=== PATIENT | female | born 2000 | race Caucasian/White ===

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

== ENCOUNTER → 2020-02-09 10:55 | Outpatient (CLI) | payer OTHER, SELFPAY ==
--- NOTE | 2020-02-09 10:58 | DI.RAD.S_ITS ---
PROCEDURE: XR HAND RT MIN 3V INDICATIONS: pain in right thumb and right wrist TECHNIQUE: 3 views of the hand(s) acquired. COMPARISON: None. FINDINGS: Bones: No fractures or dislocations. Carpal bones are normally aligned. No suspicious bony lesions. Soft tissues: No suspicious soft tissue calcifications. IMPRESSION: No acute right hand fracture or dislocation. Dictated by: Mo Horton M.D. on 02/09/2020 at 10:22 Approved by: Mo Horton M.D. on 02/09/2020 at 10:25
== END ==
PROVIDERS: PCP Student in an Organized Health Care Education/Training Program; Referring Provider Nurse Practitioner; Visit Provider Nurse Practitioner
DX: M25.531 Pain in right wrist (principal); M79.644 Pain in right finger(s)
CPT/HCPCS: 73130